=== PATIENT | male | born 1975 | race Caucasian/White ===

== ENCOUNTER 2018-06-01 03:30 | Emergency (ER) | payer SELFPAY ==
[~2018-06-01] VITALS: Ht 177.8 cm; Wt 94.0 kg
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
[2018-06-01] MEDS ORDERED: BACITRACIN ZINC OINT 500U/GM, 0.9 GM ONE (03:58)
[2018-06-01] MEDS ORDERED: LIDOCAINE-MPF 1%, 5ML INFIL ONE (04:00)
[2018-06-01] MEDS ORDERED: DIPH,PERTUSS(ACELL),TET VAC/PF 0.5 ML IM-VACC ONE (04:00)
--- NOTE | 2018-06-01 04:02 | NUR ---
PT TO CT. PT REMOVED C COLLAR HIMSELF
--- NOTE | 2018-06-01 04:11 | NUR ---
PT BACK FROM CT. FRIEND AT BEDSIDE.
[2018-06-01 04:25] VITALS: BP 186/129
--- NOTE | 2018-06-01 04:34 | NUR ---
ERIC BARRETT AT BEDSIDE SUTURING LAC
--- NOTE | 2018-06-01 04:48 | NUR ---
PT AGITATED STATING "I'M GOING TO LEAVE, MY LEG IS NOT BROKEN. I'M LEAVING. ALL YOU GUYS THINK YOU KNOW WHAT YOU'RE TALKING ABOUT, YOU'RE IN YOUR 20S". PT GOT OUT OF BED AND BEGAN WALKING OUT OF THE ROOM. PT DEESCALATED AND SAT BACK DOWN ON [facility] FOR SPLINT TO BE APPLIED. IV REMOVED.
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
--- NOTE | 2018-06-01 05:06 | NUR ---
POSTERIOR SHORT LEG SPLINT APPIED TO PATIENTS RIGHT LEG. PATIENT WALKED ON UN-SPLINTED, AND SPLINTED LEG MULTIPLE TIMES AGAINST THIS PERSONAL COMPUTER NETWORK ENGINEER ADVICE. PATIENT ALSO GIVEN CRUTCHES AND DEMONSTRATED HE HAD THE ABILITY TO USE CRUTCHES EFFECTIVELY TO THIS EMT. PATIENT DID ALLOW THIS EMT TO WHEEL HIM OUTSIDE IN WHEELCHAIR, BUT REFUSED TO STAY IN CHAIR. WALKED OUTSIDE TO SMOKE AGAINST THIS PERSONAL COMPUTER NETWORK ENGINEER ADVICE.
== END 2018-06-01 05:11 | disposition left against medical advice (07) ==
LOC: ED 05:00
DX: S82.831A Other fracture of upper and lower end of right fibula, initial encounter for closed fracture (principal); S01.412A Laceration without foreign body of left cheek and temporomandibular area, initial encounter; Y04.0XXA Assault by unarmed brawl or fight, initial encounter; Y93.89 Activity, other specified; Y92.488 Other paved roadways as the place of occurrence of the external cause; Y99.8 Other external cause status
CPT/HCPCS: 12051; 29515; 70450; 70486; 99284